=== PATIENT | male | born 1965 ===

== ENCOUNTER 2017-04-13 00:59 | Emergency (ER) | payer OTHER ==
[2017-04-13 01:11] VITALS: BP 129/78; PULSE 98; RESP 18; TEMP 97.4; O2SAT 95
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
== END 2017-04-13 02:03 | disposition home or self-care (01) ==
LOC: C.ER 00:59
DX: S16.1XXA Strain of muscle, fascia and tendon at neck level, initial encounter (principal); V49.50XA Passenger injured in collision with unspecified motor vehicles in traffic accident, initial encounter

== ENCOUNTER 2017-08-02 03:15 | Emergency (ER) | payer OTHER ==
[2017-08-02] MEDS ORDERED: Albuterol-Ipratrop 3 mg / 0.5 (3 ml) UD ONE ×2 (03:52→04:37)
[2017-08-02] MEDS ORDERED: DiphenhydrAMINE 12.5 mg/5 ml LIQ UD (5 ml) PO STA (04:07)
[2017-08-02] MEDS ORDERED: Albuterol-Ipratrop 3 mg / 0.5 (3 ml) UD INH STA (04:09)
--- NOTE | 2017-08-02 06:20 | C.PDOC ---
History Of Present Illness Pt with cough, nasal congestion x 3 days . Unable to breathe thru nose. C/o of chest congestion today. Denies fever or SOB, recent travel Time Seen by Provider: 08/02/17 03:36 Chief Complaint (Nursing): ENT Problem History Per: Patient History/Exam Limitations: no limitations Current Symptoms Are (Timing): Still Present Associated Symptoms: Cough, Sputum, Nasal Congestion. denies: Fever, Sore Throat, Vomiting Ear Symptoms: Bilateral: None Past Medical History Vital Signs: Last Vital Signs Temp 97.9 F 08/02/17 03:25 Pulse 72 08/02/17 03:25 Resp 20 08/02/17 03:25 BP 126/78 08/02/17 03:25 Pulse Ox 95 08/02/17 06:27 - Medical History PMH: No Chronic Diseases Family History: States: Unknown Family Hx - Social History Hx Alcohol Use: No Hx Substance Use: Yes (PREVIOUS) - Immunization History Hx Tetanus Toxoid Vaccination: No Hx Influenza Vaccination: No Hx Pneumococcal Vaccination: No Review Of Systems Constitutional: Negative for: Fever ENT: Positive for: Nose Congestion. Negative for: Ear Pain, Throat Pain Cardiovascular: Negative for: Chest Pain Respiratory: Positive for: Cough, Sputum (clear). Negative for: Shortness of Breath Gastrointestinal: Negative for: Vomiting, Abdominal Pain Physical Exam - Physical Exam Appears: Well, Non-toxic, No Acute Distress Head: Atraumatic, Other (tender frontal sinuses) Eye(s): bilateral: Normal Inspection Ear(s): Bilateral: Normal Nose: Discharge, Other (turbinates) Throat: Normal Cardiovascular: Rhythm Regular Respiratory: Normal Breath Sounds, No Accessory Muscle Use, Wheezing (exp, ronchi) Neurological/Psych: Oriented x3 Gait: Steady ED Course And Treatment O2 Sat by Pulse Oximetry: 95 Pulse Ox Interpretation: Normal - Radiology CXR: Interpreted by Me, Viewed By Me CXR Interpretation: Yes: No Acute Disease Progress Note: Albuterol and saline nebs given once, benadryl PO. Pt in no distress and will follow up in clinic. Return precautions discussed Reevaluation Time: 06:13 Reassessment Condition: Improved Disposition Counseled Patient/Family Regarding: Diagnosis, Need For Followup, Rx Given - Disposition Referrals: [facility] [Outside] Disposition: HOME/ ROUTINE Disposition Time: 06:18 Condition: STABLE Additional Instructions: Increase PO fluids REturn to ER if worse Prescriptions: Benzonatate [Tessalon Perles] 100 mg PO TID #20 sgl Cetirizine HCl [Zyrtec] 10 mg PO DAILY #20 capsule Mometasone Furoate [Nasonex] 2 spray NS DAILY #1 bottle Instructions: Upper Respiratory Infection (ED) Forms: [employer] [facility] (Armenian) - Clinical Impression Clinical Impression: Upper respiratory infection
[2017-08-02 06:30] VITALS: BP 125/75; PULSE 74; RESP 18; TEMP 98
[2017-08-02 06:31] VITALS: O2SAT 95
--- NOTE | 2017-08-02 09:15 | RAD ---
HISTORY: COMPARISON: No prior. TECHNIQUE: Chest PA and lateral FINDINGS: LINES AND TUBES: None. LUNG AND PLEURA: There is mild pulmonary hyperinflation and peribronchial thickening with streaky opacities in the lungs. No focal consolidation. HEART AND MEDIASTINUM: The heart is not enlarged. The hilar and mediastinal contours are within normal limits. SKELETAL STRUCTURES: The bony structures are within normal limits for the patient's age. VISUALIZED UPPER ABDOMEN: Normal. OTHER FINDINGS: None. IMPRESSION: Findings are most compatible with reactive small airway disease/ viral/atypical bronchitis. No lobar pneumonia.
== END 2017-08-02 06:30 | disposition home or self-care (01) ==
LOC: C.ER 03:15
DX: J06.9 Acute upper respiratory infection, unspecified (principal)

== ENCOUNTER 2018-05-20 22:55 | Emergency (ER) | payer OTHER ==
[2018-05-20 23:12] VITALS: RESP 18; TEMP 98; O2SAT 98
[2018-05-20] MEDS ORDERED: Albuterol 0.083% Inhal Sol (2.5 mg/3 mL) UD IH STA (23:52)
[2018-05-21] MEDS ORDERED: Albuterol 0.083% Inhal Sol (2.5 mg/3 mL) UD ONE (00:03)
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
[2018-05-21 00:20] VITALS: BP 126/74; PULSE 88
--- NOTE | 2018-05-21 09:37 | RAD ---
HISTORY: Productive cough COMPARISON: 08/02/2017. TECHNIQUE: Chest PA and lateral FINDINGS: LINES AND TUBES: None. LUNG AND PLEURA: The lungs are well inflated and clear. No pleural effusion or pneumothorax. HEART AND MEDIASTINUM: The heart is not enlarged. No aortic atherosclerotic calcification present. The hilar and mediastinal contours are within normal limits. SKELETAL STRUCTURES: The bony structures are within normal limits for the patient's age. VISUALIZED UPPER ABDOMEN: Normal. OTHER FINDINGS: None. IMPRESSION: No active pulmonary disease.
--- NOTE | 2018-05-21 21:37 | CARD ---
APPROVED REPORT Date of service: 05/20/2018 EKG Measurement Heart [id number] <Conclusion> Normal sinus rhythm Minimal voltage criteria for LVH, may be normal variant Anterior infarct, age undetermined Abnormal ECG
== END 2018-05-21 00:20 | disposition home or self-care (01) ==
LOC: C.ER 22:55 → SUPCPDRO 22:55 → C.ER 05-21 00:20
DX: J40 Bronchitis, not specified as acute or chronic (principal); J06.9 Acute upper respiratory infection, unspecified

== ENCOUNTER 2018-11-09 23:58 | Emergency (ER) | payer OTHER ==
[2018-11-10 00:14] VITALS: BP 110/75; PULSE 89; RESP 18; TEMP 98.2
[2018-11-10 00:17] VITALS: O2SAT 100
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
== END 2018-11-10 01:03 | disposition home or self-care (01) ==
LOC: C.ER 23:58
DX: Z00.00 Encounter for general adult medical examination without abnormal findings (principal)